=== PATIENT | male | born 1945 | race Caucasian/White ===

== ENCOUNTER 2018-07-14 05:49 | Inpatient (IN) | payer MEDICARE ==
[2018-07-11 14:40] VITALS: BMI 30.5
--- NOTE | 2018-07-13 15:13 | HP ---
HISTORY OF PRESENT ILLNESS: Mr. Conti is a pleasant 73-year-old man, known to us for evaluation of left-sided C7 radiculopathy, who presents for surgical discussion. He has had an MRI at [facility] that reveals degenerative disk disease and foraminal stenosis at C6-7, which is adjacent to a previous C5-6 ACDF, which would be possibly contributing to his symptoms. He has treated this with physical therapy and medications in the past. He is still undergoing traction therapy but not receiving any relief. He hopes to move forward with surgical intervention if possible. PAST MEDICAL HISTORY: Significant for hypercholesterolemia, chronic pain syndrome, migraine headaches, hypertension, skin cancer, seasonal allergies. PAST SURGICAL HISTORY: C5-6 ACDF, umbilical herniorrhaphy, skin cancer resection, carpal tunnel release. CURRENT MEDICATIONS: 1. Simvastatin. 2. Tamsulosin. 3. Flonase. 4. AndroGel. 5. Fenofibrate. 6. Lisinopril. 7. Aspirin. ALLERGIES: NO KNOWN DRUG ALLERGIES. PHYSICAL EXAMINATION: The patient is alert and oriented x3. Cervical range of motion is mildly limited. He has a positive Spurling's to the left. ASSESSMENT: Cervical radiculopathy. PLAN: Dr. Bianchi met with the patient, reviewed imaging, advocated for C6-7 ACDF with possible removal of hardware at C5-6. He explained to the patient the risks, benefits, and alternatives to the procedure. The patient expressed understanding and would like to move forward with the surgery as discussed. I do believe the patient is mentally competent and capable of making medical decisions for himself. We will move forward with surgery as planned. Job ID: [id number]
[2018-07-14] MEDS ORDERED: Fentanyl 100 MCG/2 ML VIAL ONE ×3 (06:48→09:35)
[2018-07-14] MEDS ORDERED: Thrombin 5000 UNITS/5 ML VIAL ONE (06:54)
[2018-07-14] MEDS ORDERED: Dexamethasone 20 MG/5 ML VIAL ONE (09:32)
[2018-07-14] MEDS ORDERED: Ondansetron PF 4 MG/2 ML Vial ONE (09:32)
[2018-07-14] MEDS ORDERED: PROPOFOL 200 MG/20 ML VIAL ONE (09:32)
[2018-07-14] MEDS ORDERED: ePHEDrine 50 MG/ML VIAL ONE (09:32)
[2018-07-14] MEDS ORDERED: Lidocaine 1% PF 5 ML VIAL ONE (09:32)
[2018-07-14] MEDS ORDERED: Rocuronium Bromide 10 MG/ML (10ML VIAL) ONE (09:32)
[2018-07-14] MEDS ORDERED: Glycopyrrolate 0.2 MG/ML 5 ML SYRINGE ONE (09:32)
[2018-07-14] MEDS ORDERED: Tamsulosin HCl 0.4 MG CAP ONE (09:50)
--- NOTE | 2018-07-14 10:43 | OP ---
DATE OF PROCEDURE: 07/14/2018 GEOSPATIAL INFORMATION SCIENTIST: Xavier Gama PA-C INDICATION: Pain. DIAGNOSIS: Cervical radiculopathy. PROCEDURES PERFORMED: Removal of anterior instrumentation at C5-C6, and anterior cervical diskectomy and fusion at C6-C7, placement of allograft, and placement of autograft. ANESTHESIA: General. DESCRIPTION OF PROCEDURE: The patient was brought into the operating room and placed under general anesthesia. He was placed on table in a supine position. A transverse incision was planned over the lateral aspect of the neck on the right. After prepping and draping and after an appropriate preoperative pause, the incision was created. The underlying platysma muscle was identified and incised. A blunt tissue plane anterior to the sternocleidomastoid muscle was used to gain access to the prevertebral space. The old plate was identified and carefully removed including 4 screws. We then redirected our attention to the level beneath it at C6-C7, where an annulotomy was performed. All disk material as well as anterior and posterior osteophytes were removed. After completely decompressing the C6-C7 segment, a 7-mm lordotic PEEK cage packed with allograft and autograft material was placed within the interbody space. An anterior cervical plate was then fashioned to the front of spine and secured with a total of 4 fixed screws. Midline lateral structures were inspected and found to be free from significant trauma. The wound was irrigated. Hemostasis was maintained throughout. The wound was then closed in anatomic layers and a pressure dressing was applied. There were no known procedural complications. Job ID: [id number]
--- NOTE | 2018-07-15 09:32 | EKG ---
Test Reason : PREOP Blood Pressure : / mmHG Vent. Rate : 059 BPM Atrial Rate : 059 BPM P-R Int : 210 ms QRS Dur : 112 ms QT Int : 420 ms P-R-T Axes : 059 -49 000 degrees QTc Int : 415 ms Sinus bradycardia with sinus arrhythmia with 1st degree A-V block Left anterior fascicular block Abnormal ECG No previous ECGs available Confirmed by DR. Ivon BUTT ([id number]) on 07/15/2018 9:32:32 AM Referred By: ANANT Confirmed By:DR. Ivon BUTT
== END 2018-07-14 12:13 | disposition home or self-care (01) | DRG 30 ==
LOC: SURG A 05:49 → EDSTATUS 12:32
PROVIDERS: ADMIT Neurological Surgery; ATTEND Neurological Surgery
PROC: 0RG10A0 Fusion of Cervical Vertebral Joint with Interbody Fusion Device, Anterior Approach, Anterior Column, Open Approach (ICD-10-PCS; principal; 2018-07-14)
PROC: 0RT30ZZ Resection of Cervical Vertebral Disc, Open Approach (ICD-10-PCS; 2018-07-14)
PROC: 0RP104Z Removal of Internal Fixation Device from Cervical Vertebral Joint, Open Approach (ICD-10-PCS; 2018-07-14)
DX: M54.12 Radiculopathy, cervical region (principal); E78.00 Pure hypercholesterolemia, unspecified; G89.4 Chronic pain syndrome; G43.909 Migraine, unspecified, not intractable, without status migrainosus; I10 Essential (primary) hypertension; Z85.828 Personal history of other malignant neoplasm of skin; Z98.1 Arthrodesis status; Z98.890 Other specified postprocedural states; Z79.82 Long term (current) use of aspirin
CPT/HCPCS: 76000; 93005; 93010; C1713; C1776; J1100; J2001; J2405; J2704; J3010; J3490

== ENCOUNTER 2018-10-22 09:26 | Observation (INO) | payer MEDICARE ==
[2018-10-21 16:17] VITALS: BMI 31.1
[2018-10-22] MEDS ORDERED: Oxymetazoline HCl 0.05% ( 15 ML ) ONE ×2 (11:18→12:14)
[2018-10-22 11:34] LABS: Hemoglobin 13.6 g/dL (14.0-18.0)
[2018-10-22] MEDS ORDERED: hydrALAZINE 20 MG/ML VIAL ONE (11:36)
[2018-10-22] MEDS ORDERED: Midazolam HCl 2 mg/2 ml Vial ONE (12:11)
[2018-10-22] MEDS ORDERED: Fentanyl 100 MCG/2 ML VIAL ONE (12:11)
[2018-10-22 12:14] LABS: Anion Gap 12 mmol/L (10-20); BUN (Urea Nitrogen) 21 mg/dL (8.4-25.7); Calc. Creatinine Clearance 90 mL/min (70-130); Carbon Dioxide 24 mmol/L (23-31); Estimated GFR-MDRD 65; Glucose 109 mg/dL (83-110)
[2018-10-22] MEDS ORDERED: Lidocaine 1% w/Epinephrine 1:100K 20 ML VIAL ONE (12:14)
[2018-10-22 12:21] LABS: Chloride 109 mmol/L (98-107); Potassium 4.2 mmol/L (3.5-5.1); Sodium 141 mmol/L (136-145)
[2018-10-22] MEDS ORDERED: HYDROcodone/Acetaminophen 5/325 mg Tablet PO PRN ×2 (19:02→19:03)
[2018-10-22] MEDS ORDERED: Simvastatin 40 MG TAB PO SCH (21:00)
[2018-10-22] MEDS ORDERED: Fenofibrate Nanocrystallized 145 MG TAB PO SCH (21:00)
[2018-10-22] MEDS ORDERED: Amlodipine 5 MG TAB PO SCH (21:00)
[2018-10-22] MEDS ORDERED: Tamsulosin HCl 0.4 MG CAP PO SCH (21:00)
[2018-10-22] MEDS ORDERED: Lisinopril 20 MG TAB PO SCH (21:00)
[2018-10-23 07:18] VITALS: BP 162/93; TEMP 98
--- NOTE | 2018-10-23 08:02 | OP ---
DATE OF PROCEDURE: 10/22/2018 PREOPERATIVE DIAGNOSES: 1. Chronic rhinosinusitis. 2. Nasal septal deviation. 3. Bilateral inferior turbinate hypertrophy. 4. Dynamic nasal valve collapse. 5. Nasal obstruction. POSTOPERATIVE DIAGNOSES: 1. Chronic rhinosinusitis. 2. Nasal septal deviation. 3. Bilateral inferior turbinate hypertrophy. 4. Dynamic nasal valve collapse. 5. Nasal obstruction. PROCEDURES PERFORMED: 1. Bilateral endoscopic sinus surgery, total ethmoidectomies. 2. Bilateral endoscopic sinus surgery, maxillary antrostomies. 3. Bilateral endoscopic sinus surgery, frontal sinusotomies. 4. Nasal septoplasty. 5. Bilateral inferior turbinate submucosal resection. 6. Repair of lateral nasal wall. ESTIMATED BLOOD LOSS: 50 mL. COMPLICATIONS: None. ANESTHESIA: GETA. PROCEDURE IN DETAIL: Patient was taken to the operating room and placed supine on the table. General endotracheal anesthesia was obtained by the anesthesia staff. Tube was secured in the left lower lip. Patient was then placed in the beach chair position, and Afrin pledgets were placed in the nasal cavity. Injections of 1% lidocaine with 1:100,000 epinephrine were made into the nasal septum as well as the inferior turbinates. Patient was then prepped and draped in standard surgical fashion for nasal surgery. Following this, the Afrin pledgets were removed. A Servando incision was made on the left nasal septum. Submucoperichondrial dissection was performed. The deviated portions of the septum included portions of the cartilage and the bony septum. These isolated areas were removed using 3 cutting rongeurs. There was noted to be a large dorsal and caudal strut, left intact for support of the nose. The mucoperichondrial flaps were then reapproximated using a 4-0 gut stitch. Any straight pieces of cartilage were crushed prior to this and placed between the mucoperichondrial flaps. Following this, the inferior turbinates were then punctured with a submucosal coblation wand, and submucosal coblations were performed of multiple areas of the inferior portion of the anterior inferior turbinate. Please note that the submucosal microdebrider was used to submucosally resect the anterior and inferior portions of the inferior turbinates bilaterally. Following this, the inferior turbinates were laterally outfractured. Following this, the 0-degree endoscope was advanced into the middle meatus. The middle turbinates were visualized and were medially fractured using a [place] elevator. Following this, the uncinate process was identified bilaterally and was anteriorly fractured using a ball-ended probe bilaterally. Following this, the uncinate was removed using the upbiting Blakesley forceps and the curved microdebrider. Following this, the natural maxillary sinus ostia was gently identified using a ball-ended probe. The maxillary ostia were then widened bilaterally using the curved microdebrider and straight Blakesley forceps bilaterally. Following this, ethmoidal bulla was identified and was punctured on its medial and inferior aspect and was removed using the 0-degree microdebrider. Following this, the grand lamella was then identified and was punctured into the posterior ethmoidal cells. Working from posterior to anterior, the ethmoidal cells were opened using the 0-degree microdebrider and curved microdebrider. Following this, a 45-degree endoscope and the curved microdebrider blade were used to further open the frontal recess cells and expose and identify the frontal sinus ostia bilaterally. The frontal sinus ostia were then widened bilaterally using the curved microdebrider. Following this, the nasal cavity was irrigated. Mirapex was placed within the middle meatus. Cho splints were placed and secured. Following this, the [place] elevator was used to identify the weekend areas of the lateral nasal wall due to cartilage atrophy. Proper alignments made and an implant was inserted providing support overlying the nasal bones bilaterally and extending to the alar rim. The patient tolerated the procedure well. Job ID: [id number]
[2018-10-23] MEDS ORDERED: ANDROGEL TOP SCH (09:00)
[2018-10-23] MEDS ORDERED: Fluticasone Propionate Nasal Spray 16 gm Bottle NASAL SCH (09:00)
== END 2018-10-23 10:39 | disposition home or self-care (01) ==
LOC: SDC 09:26 → SJJU 18:06
PROVIDERS: ADMIT Otolaryngology Plastic Surgery within the Head & Neck; ATTEND Otolaryngology Plastic Surgery within the Head & Neck
PROC: 09SM0ZZ Reposition Nasal Septum, Open Approach (ICD-10-PCS; principal; 2018-10-22)
PROC: 09TL0ZZ Resection of Nasal Turbinate, Open Approach (ICD-10-PCS; 2018-10-22)
PROC: 09TV8ZZ Resection of Left Ethmoid Sinus, Via Natural or Artificial Opening Endoscopic (ICD-10-PCS; 2018-10-22)
PROC: 09TU8ZZ Resection of Right Ethmoid Sinus, Via Natural or Artificial Opening Endoscopic (ICD-10-PCS; 2018-10-22)
PROC: 099T8ZZ Drainage of Left Frontal Sinus, Via Natural or Artificial Opening Endoscopic (ICD-10-PCS; 2018-10-22)
PROC: 099Q8ZZ Drainage of Right Maxillary Sinus, Via Natural or Artificial Opening Endoscopic (ICD-10-PCS; 2018-10-22)
PROC: 099R8ZZ Drainage of Left Maxillary Sinus, Via Natural or Artificial Opening Endoscopic (ICD-10-PCS; 2018-10-22)
PROC: 099S8ZZ Drainage of Right Frontal Sinus, Via Natural or Artificial Opening Endoscopic (ICD-10-PCS; 2018-10-22)
DX: J32.9 Chronic sinusitis, unspecified (principal); J34.2 Deviated nasal septum; J34.3 Hypertrophy of nasal turbinates; J34.89 Other specified disorders of nose and nasal sinuses; J30.9 Allergic rhinitis, unspecified; Z79.51 Long term (current) use of inhaled steroids; Z79.82 Long term (current) use of aspirin; Z79.899 Other long term (current) drug therapy; Z98.1 Arthrodesis status; Z98.890 Other specified postprocedural states
CPT/HCPCS: 80048; 85014; 85018; 93005; 93010; G0378; J0131; J0360; J2001; J2250; J3010